=== PATIENT | male | born 1960 | race Caucasian/White ===

== ENCOUNTER 2017-01-06 20:20 | Emergency (ER) | payer MEDICAID ==
[~2017-01-06] VITALS: Ht 190.5 cm; Wt 131.5 kg
[2017-01-06 20:20] VITALS: BP_SYST 122
[2017-01-06 22:30] VITALS: BP_SYST 128
[2017-01-07] MEDS ORDERED: SERT100T PO (22:28)
== END 2017-01-06 22:30 | disposition home or self-care (01) ==
LOC: SED 20:20
DX: S92.811A Other fracture of right foot, initial encounter for closed fracture (principal); M25.561 Pain in right knee; M25.562 Pain in left knee; W10.8XXA Fall (on) (from) other stairs and steps, initial encounter; Y93.01 Activity, walking, marching and hiking; Y92.89 Other specified places as the place of occurrence of the external cause; Y99.8 Other external cause status
CPT/HCPCS: 99284

== ENCOUNTER 2017-01-07 20:07 | Inpatient (IN) | payer MEDICAID ==
[~2017-01-07] VITALS: Ht 188 cm; Wt 101.7 kg
[2017-01-07 20:07] VITALS: BP_SYST 130
[2017-01-07 21:23] LABS: BASOPHILS % (AUTO) 0.1 % (0.0-2.0); EOSINOPHILS % (AUTO) 0.3 % (0.0-4.0); HEMATOCRIT 33.2 % (36-54); HEMOGLOBIN 11.3 g/dL (14.0-18.0); LYMPHOCYTES # (AUTO) 1.7 K/uL (1.0-5.5); LYMPHOCYTES % (AUTO) 14.8 % (20.5-51.5); MEAN CORPUSCULAR HEMOGLOBIN 32 pg (27-31); MEAN CORPUSCULAR HGB CONC 34 % (32-36); MEAN CORPUSCULAR VOLUME 93 fL (79.0-98.0); MONOCYTES # (AUTO) 1.1 K/uL (0.0-1.0); MONOCYTES % (AUTO) 9.4 % (1.7-9.3); NEUTROPHILS # (AUTO) 8.4 K/uL (1.8-7.7); NEUTROPHILS % (AUTO) 75.4 % (40.0-70.0); PLATELET COUNT (AUTO) 320 K/uL (130-430); RED BLOOD CELL COUNT(AUTO) 3.56 MIL/uL (4.2-6.2); RED CELL DISTRIBUTION WIDTH 12.2 % (9.0-15.0); WHITE BLOOD COUNT (AUTO) 11.2 K/uL (4.8-10.8)
[2017-01-07] MEDS ORDERED: KETOROLAC TROMETHAMINE 60 MG/2 ML VIAL IM ONE (21:30)
[2017-01-07 21:43] LABS: CREATININE 1.25 mg/dL (0.55-1.30); POTASSIUM 3.7 mmol/L (3.5-5.1)
[2017-01-07 21:48] LABS: ALBUMIN 3.9 g/dL (3.4-4.8); TOTAL BILIRUBIN 0.5 mg/dL (0.0-1.0); TOTAL PROTEIN, SERUM 7.6 g/dL (6.4-8.3)
[2017-01-07] MEDS ORDERED: SERT100T PO (22:28)
[2017-01-07] MEDS ORDERED: ACETAMINOPHEN 325 MG TABLET PO PRN (22:30)
[2017-01-07] MEDS ORDERED: KETOROLAC TROMETHAMINE 10 MG TABLET (TORADOL) PO PRN (22:30)
[2017-01-07] MEDS: LR 1,000 ML IV SCH (23:53)
[2017-01-08 00:17] VITALS: BP_SYST 143
[2017-01-08] MEDS ORDERED: DIPH25CA83 PO (01:02)
[2017-01-08] MEDS ORDERED: IBUP-2101 (01:02)
[2017-01-08 04:26] VITALS: BP_SYST 129
[2017-01-08 08:28] VITALS: BP_SYST 146
[2017-01-08] MEDS: HYDROcodone/ACETAMIN 5-325 MG TAB (NORCO/ VICODIN) PO PRN ×3 (09:59→18:46)
[2017-01-08] MEDS ORDERED: IBUPROFEN 400 MG TABLET PO PRN (10:00)
[2017-01-08] MEDS ORDERED: DIPHENHYDRAMINE HCL 25 MG CAPSULE PO PRN (10:00)
[2017-01-08 12:37] VITALS: BP_SYST 116; BP_SYST 148
[2017-01-08] MEDS ORDERED: SERTRALINE HCL 50 MG TABLET PO ONE (12:45)
[2017-01-08 16:34] VITALS: BP_SYST 149
[2017-01-08] MEDS: LR 1,000 ML IV SCH ×2 (18:30→20:47)
[2017-01-08 20:42] VITALS: BP_SYST 147
[2017-01-09 01:32] VITALS: BP_SYST 140
[2017-01-09 05:45] VITALS: BP_SYST 124
[2017-01-09 06:33] LABS: BASOPHILS % (AUTO) 0.3 % (0.0-2.0); EOSINOPHILS # (AUTO) 0.3 K/uL (0.0-0.4); EOSINOPHILS % (AUTO) 3.3 % (0.0-4.0); HEMATOCRIT 26.5 % (36-54); HEMOGLOBIN 8.7 g/dL (14.0-18.0); LYMPHOCYTES # (AUTO) 1.9 K/uL (1.0-5.5); MEAN CORPUSCULAR HEMOGLOBIN 31 pg (27-31); MEAN CORPUSCULAR HGB CONC 33 % (32-36); MEAN CORPUSCULAR VOLUME 96 fL (79.0-98.0); MONOCYTES # (AUTO) 0.9 K/uL (0.0-1.0); MONOCYTES % (AUTO) 11.5 % (1.7-9.3); NEUTROPHILS # (AUTO) 5.1 K/uL (1.8-7.7); NEUTROPHILS % (AUTO) 61.9 % (40.0-70.0); PLATELET COUNT (AUTO) 243 K/uL (130-430); RED BLOOD CELL COUNT(AUTO) 2.77 MIL/uL (4.2-6.2); RED CELL DISTRIBUTION WIDTH 12.3 % (9.0-15.0)
[2017-01-09 06:43] LABS: INR 0.9 (0.80-1.20); PROTHROMBIN TIME 10.2 SECS (9.5-12.5)
[2017-01-09 06:47] LABS: ALBUMIN 3.1 g/dL (3.4-4.8); CALCIUM 8.4 mg/dL (8.4-11.0); CREATININE 0.79 mg/dL (0.55-1.30); POTASSIUM 3.6 mmol/L (3.5-5.1); TOTAL BILIRUBIN 0.4 mg/dL (0.0-1.0); TOTAL PROTEIN, SERUM 6.7 g/dL (6.4-8.3)
[2017-01-09 06:54] LABS: WHITE BLOOD COUNT (AUTO) 8.2 K/uL (4.8-10.8)
[2017-01-09] MEDS: HYDROcodone/ACETAMIN 5-325 MG TAB (NORCO/ VICODIN) PO PRN ×2 (06:57→23:07)
[2017-01-09 08:00] VITALS: BP_SYST 147
[2017-01-09] MEDS: SERTRALINE HCL 50 MG TABLET PO SCH (08:32)
[2017-01-09 12:24] VITALS: BP_SYST 148
[2017-01-09 16:21] VITALS: BP_SYST 128
[2017-01-09] MEDS: LR 1,000 ML IV SCH (17:23)
[2017-01-09 19:12] LABS: BASOPHILS % (AUTO) 0.3 % (0.0-2.0); EOSINOPHILS # (AUTO) 0.2 K/uL (0.0-0.4); EOSINOPHILS % (AUTO) 2.1 % (0.0-4.0); HEMATOCRIT 26.2 % (36-54); HEMOGLOBIN 8.6 g/dL (14.0-18.0); LYMPHOCYTES # (AUTO) 2.1 K/uL (1.0-5.5); LYMPHOCYTES % (AUTO) 22.6 % (20.5-51.5); MEAN CORPUSCULAR HEMOGLOBIN 31 pg (27-31); MEAN CORPUSCULAR HGB CONC 33 % (32-36); MEAN CORPUSCULAR VOLUME 95 fL (79.0-98.0); MONOCYTES # (AUTO) 0.9 K/uL (0.0-1.0); MONOCYTES % (AUTO) 9.8 % (1.7-9.3); NEUTROPHILS # (AUTO) 5.9 K/uL (1.8-7.7); NEUTROPHILS % (AUTO) 65.2 % (40.0-70.0); PLATELET COUNT (AUTO) 287 K/uL (130-430); RED BLOOD CELL COUNT(AUTO) 2.76 MIL/uL (4.2-6.2); RED CELL DISTRIBUTION WIDTH 12.4 % (9.0-15.0); WHITE BLOOD COUNT (AUTO) 9.1 K/uL (4.8-10.8)
[2017-01-09 19:26] LABS: CALCIUM 8.3 mg/dL (8.4-11.0); CREATININE 0.71 mg/dL (0.55-1.30); GLUCOSE 120 mg/dL (70-99); POTASSIUM 4.1 mmol/L (3.5-5.1); SODIUM SERUM 137 mmol/L (136-145); UREA NITROGEN, BLOOD 22 mg/dL (8-21)
[2017-01-09 19:31] LABS: CHLORIDE 104 mmol/L (98-107)
[2017-01-09 19:32] LABS: ANION GAP < 3 (5-15); GFR AFRICAN AMERICAN 148 mL/min (>90)
[2017-01-10 00:43] VITALS: BP_SYST 143
[2017-01-10 05:55] VITALS: BP_SYST 136
[2017-01-10 08:00] VITALS: BP_SYST 156
[2017-01-10 08:21] VITALS: BP_SYST 136
[2017-01-10] MEDS: SERTRALINE HCL 50 MG TABLET PO SCH (09:57)
== END 2017-01-10 10:50 | disposition short-term general hospital (02) | DRG 342 ==
LOC: SED 20:07 → STU 22:29 → SMU 01-08 16:05
PROVIDERS: ADMIT Internal Medicine; ATTEND Internal Medicine
DX: S92.811A Other fracture of right foot, initial encounter for closed fracture (principal); S09.90XA Unspecified injury of head, initial encounter; D62 Acute posthemorrhagic anemia; W19.XXXA Unspecified fall, initial encounter; M17.12 Unilateral primary osteoarthritis, left knee; Z79.1 Long term (current) use of non-steroidal anti-inflammatories (NSAID); Z79.899 Other long term (current) drug therapy; Y93.89 Activity, other specified; Y92.89 Other specified places as the place of occurrence of the external cause; Y99.8 Other external cause status
CPT/HCPCS: 36415; 70450-TC; 73700-TC; 80048; 80053; 85025; 85610-TC; 96372; 96379; 99285; J1885; J7120